=== PATIENT | male | born 1950 | race Caucasian/White ===

== ENCOUNTER 2018-01-07 09:56 | Emergency (ER) | payer MEDICARE, BC ==
[2018-01-07 10:00] VITALS: BP 171/90; PULSE 72; RESP 16; TEMP 97.8; O2SAT 98
--- NOTE | 2018-01-07 10:06 | PD ---
HPI Chief Complaint: Injury Time Seen by Provider: 10:05 Travel History International Travel<30 days: No Contact w/Intl Traveler<30days: No Traveled to known affect area: No History of Present Illness HPI 68-year-old male presents emergency department for evaluation of left fifth digit injury. Patient states he was closing a garage yesterday when his dog ran , pulling his lesion and the patient's left fifth digit dislocated at the PIP. He states that he reduced it and taped it to the fourth digit, however he feels like he may have broken it. It is tender to touch and painful to bend at the PIP. Patient denies any alterations in sensation. Range of motion is only limited due to pain. He has no other symptoms to report. [facility] Past Medical History Medical History: Denies Significant Hx Social History Tobacco Use: No Allergies-Medications (Allergen,Severity, Reaction): Coded Allergies: promethazine (Verified Adverse Reaction, Intermediate, Irritability/ Anxiety, 01/07/18) Reported Meds & Prescriptions Reported Meds & Active Scripts Active Reported Zetia (Ezetimibe) 10 Mg Tab 5 Mg PO DAILY Testosterone Cypionate Inj (Testosterone Cypionate) 100 Mg/Ml Inj 100 Mg IM Q14D Metformin (Metformin HCl) 500 Mg Tab 500 Mg PO DAILY@0600 With a meal Metformin (Metformin HCl) 500 Mg Tab 500 Mg PO BIDPC Metformin (Metformin HCl) 1,000 Mg Tab 1,000 Mg PO DAILY@1600 With a meal Hydrochlorothiazide 12.5 Mg Tab 12.5 Mg PO DAILY Gabapentin 300 Mg Cap 300 Mg PO HS Carvedilol 25 Mg Tab 25 Mg BID Benazepril (Benazepril HCl) 20 Mg Tab 20 Mg PO BID Atorvastatin (Atorvastatin Calcium) 20 Mg Tab 20 Mg PO HS [place] Thyroid (Thyroid) 90 Mg Tab 90 Mg PO DAILY [place] Thyroid (Thyroid) 120 Mg Tab 120 Mg PO DAILY Amlodipine (Amlodipine Besylate) 2.5 Mg Tab 2.5 Mg PO DAILY Aspirin Low Dose (Aspirin) 81 Mg Chew 162 Mg CHEW DAILY Review of Systems Except as stated in HPI: all other systems reviewed are Neg Physical Exam Narrative GENERAL: Well-nourished, well-developed male patient in no acute distress SKIN: Focused skin assessment warm/dry. HEAD: Normocephalic. EYES: No scleral icterus. No injection or drainage. NECK: Supple, trachea midline. No JVD or lymphadenopathy. CARDIOVASCULAR: Regular rate and rhythm without murmurs, gallops, or rubs. RESPIRATORY: Breath sounds equal bilaterally. No accessory muscle use. MUSCULOSKELETAL: No cyanosis. Mild edema surrounding the left fifth digit PIP with no deformity. Cap refill within normal limits. Patient is able to flex the digit with minimal difficulty secondary to pain. BACK: without obvious deformity. No CVA tenderness. Data Data Last Documented VS Vital Signs Date Time Temp Pulse Resp B/P (MAP) Pulse Ox O2 Delivery O2 Flow Rate FiO2 01/07/18 10:00 97.8 72 16 171/90 (117) 98 Orders Orders Finger ([email or web address]) (01/07/18 ) Splint Or Brace Apply/Monitor (01/07/18 11:22) Ed Discharge Order (01/07/18 11:23) [facility] Medical Decision Making Medical Screen Exam Complete: Yes Emergency Medical Condition: Yes Medical Record Reviewed: Yes Differential Diagnosis Finger sprain versus fracture versus dislocation versus contusion Narrative Course 68-year-old male presents emergency department for evaluation of left fifth digit injury. X-ray imaging confirms no acute bony abnormality. The digit is neurovascularly intact. Patient is placed in an aluminum finger splint. He is encouraged to follow-up with primary care provider. Patient agrees to return immediately with acute worsening symptoms. Diagnosis Primary Impression: Finger sprain Qualified Codes: S63.637A - Sprain of interphalangeal joint of left little finger, initial encounter Referrals: Primary Care Physician Patient Instructions: Finger Sprain (ED), General Instructions Additional Instructions: Brace for support Follow-up with a primary care provider Ibuprofen or Tylenol as directed on the package as needed for pain Return immediately with acute worsening symptoms Med/Other Pt SpecificInfo: No Change to Meds Disposition: 01 DISCHARGE HOME Condition: Stable Norma Zurita FRANCISCA January 07, 2018 10:06
[2018-01-07] MEDS ORDERED: ARMO90TA PO (10:26)
[2018-01-07] MEDS ORDERED: BENA20TA PO (10:26)
[2018-01-07] MEDS ORDERED: AMLO2.5T PO (10:26)
[2018-01-07] MEDS ORDERED: METF500T PO ×2 (10:26)
[2018-01-07] MEDS ORDERED: HYDR12.56 PO (10:26)
[2018-01-07] MEDS ORDERED: METF1000 PO (10:26)
[2018-01-07] MEDS ORDERED: EZET10 PO (10:26)
[2018-01-07] MEDS ORDERED: GABA300C5 PO (10:26)
[2018-01-07] MEDS ORDERED: CARV25TA (10:26)
[2018-01-07] MEDS ORDERED: ARMO120T PO (10:26)
[2018-01-07] MEDS ORDERED: ASPI81CH6 CHEW (10:26)
[2018-01-07] MEDS ORDERED: TEST1INJ3 IM (10:26)
[2018-01-07] MEDS ORDERED: ATOR20TA15 PO (10:26)
--- NOTE | 2018-01-07 11:22 | RADRPT ---
EXAM DATE/TIME: 01/07/2018 10:59 [place] COMPARISON: No previous studies available for comparison. INDICATIONS : Left Fifth digit pain, after getting caught in leash MEDICAL HISTORY : None. SURGICAL HISTORY : None. ENCOUNTER: Initial ACUITY: 1 day PAIN SCORE: 6/10 LOCATION: Left fifth didgit FINDINGS: Examination of the fifth digit of the left hand demonstrates no evidence of fracture or dislocation. No radiopaque foreign bodies are seen. The soft tissues are intact. There are severe degenerative c hanges identified in the first digit carpometacarpal joint and moderate degenerative change identifie d in the DIP joints. The bones are osteopenic. CONCLUSION: No evidence of fracture.. Nadiya Alex MD on January 07, 2018 at 11:18 Board Certified Radiologist. This report was verified electronically.
== END 2018-01-07 11:42 | disposition home or self-care (01) ==
LOC: NEPD 09:56
DX: S63.637A Sprain of interphalangeal joint of left little finger, initial encounter (principal); X50.1XXA Overexertion from prolonged static or awkward postures, initial encounter; Y93.89 Activity, other specified; Y92.008 Other place in unspecified non-institutional (private) residence as the place of occurrence of the external cause
CPT/HCPCS: 29130; 73140